=== PATIENT | male | born 1985 | race Caucasian/White ===

== ENCOUNTER 2017-04-25 00:38 | Emergency (ER) | payer OTHER ==
[2017-04-25 02:00] VITALS: BP 117/82
--- NOTE | 2017-04-25 02:57 | RADIOLOGY REPORT ---
EXAMINATION: XR WRIST, RIGHT CLINICAL INFORMATION: Pain and swelling status post fall COMPARISON: None TECHNIQUE: AP, lateral, and oblique views of the right wrist. FINDINGS: There is a minimally displaced triquetral fracture seen on the lateral view. There is overlying soft tissue swelling. The carpal rows remain aligned. Cyst formation seen within the scaphoid at the triscaphe joint. IMPRESSION: Minimally displaced triquetral fracture.
--- NOTE | 2017-04-25 03:29 | ED HAND/WRIST INJURY COMPLAINT ---
History of Present Illness General Chief Complaint: Hand or Wrist Injury Stated Complaint: RT WRIST PAIN S/P FALL Source: patient Exam Limitations: no limitations Vital Signs & Intake/Output Vital Signs & Intake/Output Vital Signs Date Time Temp Pulse Resp B/P B/P Pulse O2 O2 Flow FiO2 Mean Ox Delivery Rate 04/25 0252 Room Air 04/25 0200 96.4 83 18 117/82 97 Room Air Allergies Coded Allergies: NO KNOWN ALLERGIES (04/11/16) Reconcile Medications No Known Home Medications Triage Note: TRIAGE: PATIENT TO ER FROM HOME REPORTING S/P FALL ON [email or web address] APPROX 5PM TONIGHT, +PAIN/ SWELLING TO R WRIST SINCE. ICE PACK IN PLACE, DECLINES TYLENOL/MOTRIN AT THIS TIME. Triage Nurses Notes Reviewed? yes HPI: Patient presents for evaluation of injury sustained status post fall while rollerblading. Patient states he fell backwards coming down on his extended hands and arms. He had an abrupt onset of moderate to severe right wrist pain at that point it has been constant since onset. He gets worse with movement and palpation. Past History Travel History Traveled to [place] past 21 day No Medical History Any Pertinent Medical History? see below for history Neurological: NONE EENT: NONE Cardiovascular: NONE Respiratory: asthma Gastrointestinal: NONE Hepatic: NONE Renal: NONE Musculoskeletal: NONE Psychiatric: opioid dependence Endocrine: NONE Blood Disorders: NONE Cancer(s): NONE MAINFRAME ANALYST/Reproductive: NONE Surgical History Surgical History: non-contributory Psychosocial History What is your primary language Yoruba Tobacco Use: Refused to answer Family History Hx Contributory? No Review of Systems Review of Systems Constitutional: Reports: no symptoms. EENTM: Reports: no symptoms. Respiratory: Reports: no symptoms. Cardiovascular: Reports: no symptoms. GI: Reports: no symptoms. Genitourinary: Reports: no symptoms. Musculoskeletal: Reports: see HPI. Skin: Reports: no symptoms. Neurological/Psychological: Reports: no symptoms. Hematologic/Endocrine: Reports: no symptoms. Immunologic/Allergic: Reports: no symptoms. All Other Systems: Reviewed and Negative Physical Exam Physical Exam Hand Left: normal inspection Hand Right: see below Comments: Gen.: Well-nourished, well-developed, no acute respiratory distress. Head: Normocephalic, atraumatic. Eyes: Normal inspection bilaterally Ears: Normal inspection bilaterally Nose: Normal inspection, nasal cannula in place Throat/mouth : Moist mucosa Neck: Supple, full range of motion, no goiter Heart: Regular rate and rhythm Lungs: Quiet respirations Back: Normal range of motion Extremities: Right wrist: Severe Tenderness over the dorsal aspect of the right wrist and mildly over the snuffbox. The right hand is neurovascularly intact. Neurologic: Cranial nerves grossly intact, speech is clear Skin: warm and dry Psychiatric: Calm, cooperative, no apparent delusions or hallucinations Progress Differential Diagnosis: dislocation, fracture, sprain Plan of Care: Wrist splint, orthopedic follow-up Departure Departure Disposition: HOME OR SELF CARE Condition: Stable Clinical Impression Primary Impression: Fracture of triquetrum of right wrist Referrals: PATIENT HAS NO PRIMARY CARE DR (PCP/Family) JACQUELYN WATERMAN,JENA Dumont Additional Instructions: Keep the splint in place until you see Dr. Ferreira in follow-up (call his office tomorrow for a follow-up visit). Ice and elevation over the next 48 hours. Ibuprofen 600 mg every 6 hours as needed for pain. Add Drewsey if necessary. Return if any concerns or sudden worsening. Please note that there might be incidental findings in your evaluation that are unrelated to the current emergency department visit. Please notify your primary care doctor about this emergency department visit in order to obtain and review all of the testing performed so that these incidental findings can be monitored as needed. If you had an x-ray performed, please understand that some fractures may not be seen on the initial set of x-rays. If your symptoms persist you might need a repeat set of x-rays to check for such a fracture. If you had a laceration evaluated, please understand that foreign bodies such as glass or wood may not be visible to the naked eye or on plain x-rays. If the wound becomes red, swollen, increasingly more painful or if there is any drainage from the wound, please have it reevaluated by a physician for the possibility of a retained foreign body. If you're unable to follow up as outlined in the discharge instructions please return to the emergency department. Thank you for choosing the [facility] for your care. It was a pleasure to serve you today. Mello Nathan M.D. [facility] Departure Forms: Customer Survey General Discharge Information Prescriptions: Current Visit Scripts Hydrocodone/Acetaminophen (Drewsey 5-325 Tablet) 1-2 TAB PO Q6P PRN PAIN #20 TAB Procedures Splinting Location: right forearm Manual Alignment Performed: No Hand-Made Type: orthoglass Splint: sugar-tong Splint Applied By: splint applied by me Pre-Proc Neuro Vasc Exam: normal Post-Proc Neuro Vasc Exam: normal
[2017-04-25] MEDS ORDERED: NORCO 5-325 TA1 EACH PO ×2 (03:44→03:45)
== END 2017-04-25 03:58 ==
LOC: ERH 00:38
DX: S62.111A Displaced fracture of triquetrum [cuneiform] bone, right wrist, initial encounter for closed fracture (principal); V00.111A Fall from in-line roller-skates, initial encounter; Y92.9 Unspecified place or not applicable; Y93.51 Activity, roller skating (inline) and skateboarding
CPT/HCPCS: 73110-RT